=== PATIENT | male | born 1945 | race Caucasian/White ===

== ENCOUNTER 2019-09-08 23:15 | Emergency (ER) | payer OTHER ==
[~2019-09-08] VITALS: Ht 167.6 cm; Wt 73.5 kg
[2019-09-09 00:03] LABS: BASOPHILS ABSOLUTE AUTO 0.17 K/mm3 (0.00-0.23); BASOPHILS PERCENT AUTO 1 % (0-2); EOSINOPHILS ABSOLUTE AUTO 2.05 K/mm3 (0.00-0.68); EOSINOPHILS PERCENT AUTO 15 % (0-6); Hematocrit 43.9 % (37.0-53.0); Hemoglobin 14.3 g/dL (13.5-17.5); IMMATURE GRAN ABSOLUTE AUTO 0.04 K/mm3 (0.00-0.10); IMMATURE GRAN PERCENT AUTO 0 % (0-1); LYMPHOCYTES ABSOLUTE AUTO 3.76 K/mm3 (0.84-5.20); LYMPHOCYTES PERCENT AUTO 28 % (21-46); MONOCYTES ABSOLUTE AUTO 0.68 K/mm3 (0.16-1.47); MONOCYTES PERCENT AUTO 5 % (4-13); Mean Corpuscular HGB 30.8 pg (26.0-34.0); Mean Corpuscular HGB Conc 32.6 g/dL (31.5-36.5); Mean Corpuscular Volume 94 fL (80-100); Mean Platelet Volume 9.9 fL (9.1-12.4); NEUTROPHILS PERCENT AUTO 51 % (41-73); Platelet Count 313 K/mm3 (150-400); RDW Coefficient Variation 13.5 % (11.7-14.2); RDW Standard Deviation 47.3 fL (35.1-46.3); Red Blood Cell Count 4.65 M/mm3 (4.30-5.90)
[2019-09-09 00:26] LABS: Alanine Aminotransfer (ALT/SGP 37 U/L (12-78); Albumin, Blood 4.1 g/dL (3.4-5.0); Albumin/Globulin Ratio 1.2 (0.8-1.8); Alk Phos 77 U/L (50-136); Anion Gap 6 mmol/L (6-16); Aspartate Aminotrans (AST/SGOT 19 U/L (12-37); Bilirubin, Total 0.2 mg/dL (0.1-1.0); Blood Urea Nitrogen 13 mg/dL (8-24); Bun/Creatinine Ratio 16.2 (12.0-20.0); CO2, Blood 27 mmol/L (21-32); Calcium, Blood 9.3 mg/dL (8.5-10.1); Chloride, Blood 107 mmol/L (98-108); Globulin, Blood 3.5 g/dL (2.2-4.0); Glomerular Filtration Rate >60 (60-); Glucose, Blood 123 mg/dL (70-99); Potassium, Blood 4.1 mmol/L (3.5-5.5); Sodium, Blood 140 mmol/L (136-145); Total Protein, Blood 7.6 g/dL (6.4-8.2); Troponin I <0.015 ng/mL (0.000-0.040)
[2019-09-09] MEDS ORDERED: PRED20 PO (02:02)
== END 2019-09-09 02:10 | disposition home or self-care (01) ==
LOC: ER 23:15
PROVIDERS: Emergency Medicine
DX: J45.901 Unspecified asthma with (acute) exacerbation (principal); J44.9 Chronic obstructive pulmonary disease, unspecified; E11.9 Type 2 diabetes mellitus without complications; Z87.891 Personal history of nicotine dependence
CPT/HCPCS: 36415; 71046; 80053; 84484; 85025; 93005; 93010; 94640; 94644; 96365; 96375; 99285-25; J2930; J3475

== ENCOUNTER 2019-09-25 22:37 | Emergency (ER) | payer OTHER ==
[~2019-09-25] VITALS: Ht 167.6 cm; Wt 73.9 kg
[~2019-09-25 22:37] MED LIST: PRED20 PO
[2019-09-26 01:17] LABS: BASOPHILS ABSOLUTE AUTO 0.14 K/mm3 (0.00-0.23); BASOPHILS PERCENT AUTO 1 % (0-2); EOSINOPHILS ABSOLUTE AUTO 1.42 K/mm3 (0.00-0.68); EOSINOPHILS PERCENT AUTO 13 % (0-6); Hematocrit 42.4 % (37.0-53.0); Hemoglobin 13.7 g/dL (13.5-17.5); IMMATURE GRAN ABSOLUTE AUTO 0.07 K/mm3 (0.00-0.10); IMMATURE GRAN PERCENT AUTO 1 % (0-1); LYMPHOCYTES ABSOLUTE AUTO 4.17 K/mm3 (0.84-5.20); LYMPHOCYTES PERCENT AUTO 39 % (21-46); MONOCYTES ABSOLUTE AUTO 0.72 K/mm3 (0.16-1.47); MONOCYTES PERCENT AUTO 7 % (4-13); Mean Corpuscular HGB 30.8 pg (26.0-34.0); Mean Corpuscular HGB Conc 32.3 g/dL (31.5-36.5); Mean Corpuscular Volume 95 fL (80-100); Mean Platelet Volume 10.6 fL (9.1-12.4); NEUTROPHILS ABSOLUTE AUTO 4.25 K/mm3 (1.96-9.15); NEUTROPHILS PERCENT AUTO 40 % (41-73); Platelet Count 338 K/mm3 (150-400); RDW Coefficient Variation 13.8 % (11.7-14.2); Red Blood Cell Count 4.45 M/mm3 (4.30-5.90); White Blood Cell Count 10.77 K/mm3 (4.00-11.30)
[2019-09-26 01:32] LABS: Alanine Aminotransfer (ALT/SGP 41 U/L (12-78); Albumin, Blood 3.9 g/dL (3.4-5.0); Albumin/Globulin Ratio 1.3 (0.8-1.8); Alk Phos 77 U/L (50-136); Anion Gap 8 mmol/L (6-16); Aspartate Aminotrans (AST/SGOT 21 U/L (12-37); Bilirubin, Total 0.3 mg/dL (0.1-1.0); Blood Urea Nitrogen 12 mg/dL (8-24); Bun/Creatinine Ratio 14.5 (12.0-20.0); CO2, Blood 26 mmol/L (21-32); Calcium, Blood 8.8 mg/dL (8.5-10.1); Chloride, Blood 108 mmol/L (98-108); Creatinine, Blood 0.83 mg/dL (0.60-1.20); Globulin, Blood 2.9 g/dL (2.2-4.0); Glomerular Filtration Rate >60 (60-); Glucose, Blood 156 mg/dL (70-99); Potassium, Blood 4.3 mmol/L (3.5-5.5); Sodium, Blood 142 mmol/L (136-145); Total Protein, Blood 6.8 g/dL (6.4-8.2); Troponin I <0.015 ng/mL (0.000-0.040)
[2019-09-26] MEDS ORDERED: ALBU3IS INH (01:48)
[2019-09-26] MEDS ORDERED: BUDE6HFA INH (01:49)
[2019-09-26] MEDS ORDERED: ATOR20 PO (01:49)
[2019-09-26] MEDS ORDERED: GABA300 PO (01:50)
[2019-09-26] MEDS ORDERED: FLUO.01TC TOP (01:50)
[2019-09-26] MEDS ORDERED: METF500 PO (01:51)
[2019-09-26] MEDS ORDERED: Prinivil10 MG PO (01:51)
[2019-09-26] MEDS ORDERED: GLIP10 PO (01:51)
[2019-09-26] MEDS ORDERED: OMEPRAZOLE20 MG PO (01:52)
== END 2019-09-26 03:18 | disposition home or self-care (01) ==
LOC: ER 22:37
PROVIDERS: Emergency Medicine
DX: J44.1 Chronic obstructive pulmonary disease with (acute) exacerbation (principal); E11.9 Type 2 diabetes mellitus without complications; Z87.891 Personal history of nicotine dependence; Z79.899 Other long term (current) drug therapy; Z79.51 Long term (current) use of inhaled steroids; Z79.84 Long term (current) use of oral hypoglycemic drugs
CPT/HCPCS: 36415; 71045; 80053; 83880; 84484; 85025; 93005; 93010; 94640; 96374; 99284-25; J2930

== ENCOUNTER 2019-11-11 23:43 | Inpatient (IN) | payer OTHER ==
[~2019-11-11] VITALS: Ht 167.6 cm; Wt 74.5 kg
[~2019-11-11 23:43] MED LIST changes: +ALBU3IS INH; +ATOR20 PO; +BUDE6HFA INH; +FLUO.01TC TOP; +GABA300 PO; +GLIP10 PO; +METF500 PO; +OMEPRAZOLE20 MG PO; +Prinivil10 MG PO
[2019-11-12 00:51] LABS: BASOPHILS ABSOLUTE AUTO 0.19 K/mm3 (0.00-0.23); BASOPHILS PERCENT AUTO 1 % (0-2); EOSINOPHILS ABSOLUTE AUTO 2.95 K/mm3 (0.00-0.68); EOSINOPHILS PERCENT AUTO 22 % (0-6); Hematocrit 43.3 % (37.0-53.0); Hemoglobin 13.9 g/dL (13.5-17.5); IMMATURE GRAN PERCENT AUTO 1 % (0-1); LYMPHOCYTES ABSOLUTE AUTO 4.72 K/mm3 (0.84-5.20); LYMPHOCYTES PERCENT AUTO 35 % (21-46); MONOCYTES ABSOLUTE AUTO 0.87 K/mm3 (0.16-1.47); MONOCYTES PERCENT AUTO 6 % (4-13); Mean Corpuscular HGB 30.8 pg (26.0-34.0); Mean Corpuscular HGB Conc 32.1 g/dL (31.5-36.5); Mean Corpuscular Volume 96 fL (80-100); NEUTROPHILS ABSOLUTE AUTO 4.68 K/mm3 (1.96-9.15); NEUTROPHILS PERCENT AUTO 35 % (41-73); Platelet Count 308 K/mm3 (150-400); RDW Coefficient Variation 13.8 % (11.7-14.2); RDW Standard Deviation 49.1 fL (35.1-46.3); Red Blood Cell Count 4.51 M/mm3 (4.30-5.90); White Blood Cell Count 13.51 K/mm3 (4.00-11.30)
[2019-11-12 01:10] LABS: Alanine Aminotransfer (ALT/SGP 37 U/L (12-78); Albumin/Globulin Ratio 1.3 (0.8-1.8); Alk Phos 78 U/L (50-136); Anion Gap 5 mmol/L (6-16); Aspartate Aminotrans (AST/SGOT 22 U/L (12-37); Bilirubin, Total 0.2 mg/dL (0.1-1.0); Blood Urea Nitrogen 12 mg/dL (8-24); Bun/Creatinine Ratio 12.2 (12.0-20.0); CO2, Blood 29 mmol/L (21-32); Calcium, Blood 8.7 mg/dL (8.5-10.1); Chloride, Blood 110 mmol/L (98-108); Creatinine, Blood 0.98 mg/dL (0.60-1.20); Glomerular Filtration Rate >60 (60-); Glucose, Blood 133 mg/dL (70-99); Potassium, Blood 4.1 mmol/L (3.5-5.5); Sodium, Blood 144 mmol/L (136-145); Troponin I <0.015 ng/mL (0.000-0.040)
[2019-11-12 02:07] LABS: PCO2 Arterial 54.7 mmHg (35-45); PO2 Arterial 104 mmHg (80-100); pH Blood Arterial 7.29 (7.35-7.45)
[2019-11-12] MEDS ORDERED: CENTRUM SILVER1 EAC2 PO (02:13)
[2019-11-12] MEDS ORDERED: ASPI81CH PO (02:13)
[2019-11-12] MEDS ORDERED: B-121000 MCG PO (02:14)
[2019-11-12] MEDS ORDERED: ASCO500 PO (02:15)
[2019-11-12] MEDS ORDERED: Saw Palmetto450 MG PO (02:15)
[2019-11-12] MEDS ORDERED: Garlic1000 MG PO (02:16)
[2019-11-12 05:20] LABS: Hemoglobin 13.4 g/dL (13.5-17.5); Mean Corpuscular HGB 30.8 pg (26.0-34.0); Mean Corpuscular HGB Conc 31.9 g/dL (31.5-36.5); Mean Corpuscular Volume 97 fL (80-100); Mean Platelet Volume 10.1 fL (9.1-12.4); Platelet Count 288 K/mm3 (150-400); RDW Coefficient Variation 13.8 % (11.7-14.2); RDW Standard Deviation 49.5 fL (35.1-46.3); Red Blood Cell Count 4.35 M/mm3 (4.30-5.90); White Blood Cell Count 14.01 K/mm3 (4.00-11.30)
[2019-11-12 05:44] LABS: Alanine Aminotransfer (ALT/SGP 35 U/L (12-78); Albumin, Blood 3.9 g/dL (3.4-5.0); Albumin/Globulin Ratio 1.2 (0.8-1.8); Alk Phos 76 U/L (50-136); Anion Gap 6 mmol/L (6-16); Aspartate Aminotrans (AST/SGOT 20 U/L (12-37); Bilirubin, Total 0.2 mg/dL (0.1-1.0); Blood Urea Nitrogen 16 mg/dL (8-24); Bun/Creatinine Ratio 19.1 (12.0-20.0); CO2, Blood 27 mmol/L (21-32); Calcium, Blood 8.8 mg/dL (8.5-10.1); Chloride, Blood 108 mmol/L (98-108); Creatinine, Blood 0.84 mg/dL (0.60-1.20); Globulin, Blood 3.2 g/dL (2.2-4.0); Glomerular Filtration Rate >60 (60-); Glucose, Blood 232 mg/dL (70-99); Sodium, Blood 141 mmol/L (136-145); Total Protein, Blood 7.1 g/dL (6.4-8.2)
--- NOTE | 2019-11-12 06:11 | NUR ---
END OF SHIFT SUMMARY PT TO UNIT FROM ED. ON RA, WHEEZ BUT SPO2 >92%. LITTLE WORKL OF BRETING NOTED. PT AMBULATES INDEPENDENTLY AND MAINTAINS SATS. PT STATES BREAATHING FEELS MUCH BETTER. BIPAP AT BEDSIDE FOR RESCUE. RESP PCR COLLECTED. VSS. ADMISION COMPLETED. MEDS GIVEN PER EMAR. PT IS NOT DYSPNEIC. RHYTHM IN SINUS. BP STABLE. PT IS BARELY EVEN COUGHING AT THIS TIME. WILL CONTINUE TO MONITOR UNTIL SHIFT CHQANGE.
--- NOTE | 2019-11-12 08:30 | NUR ---
ASSUMPTION OF CARE RECEIVED PT AAOX4 RESTING COMFORTABLY IN BED. NO DISTRESS NOTED. VSS. PT REMAINS ON RA, PULSE OX 95%, RESPIRATIONS EVEN & UNLABORED. INSPIRATORY & EXPIRATORY WHEEZES NOTED B/L; PLAN TO CONTINUE W/ IV STEROIDS & BREATHING TX. PT DENIES ANY C/O CHEST PAIN/PRESSURE OR SOB. PT C/O MILD HEADACHE 5/10; PRN TYLENOL ADMINISTERED. PT IS INDEPENDENT IN ROOM. WILL CONTINUE TO MONITOR.
[2019-11-12 09:36] LABS: Adenovirus Not Detected (NOT DETECT); Bordetella pertussis Not Detected (NOT DETECT); Chlamydophila pneumoniae Not Detected (NOT DETECT); Coronavirus 229E Not Detected (NOT DETECT); Coronavirus HKU1 Not Detected (NOT DETECT); Coronavirus NL63 Not Detected (NOT DETECT); Coronavirus OC43 Not Detected (NOT DETECT); Human Metapneumovirus Not Detected (NOT DETECT); Human Rhinovirus/Enterovirus Not Detected (NOT DETECT); Influenza A/2009-H1 Not Detected (NOT DETECT); Influenza A/H1 Not Detected (NOT DETECT); Influenza A/H3 Not Detected (NOT DETECT); Influenza B Not Detected (NOT DETECT); Mycoplasma pneumoniae Not Detected (NOT DETECT); Parainfluenza Virus 1 Not Detected (NOT DETECT); Parainfluenza Virus 2 Not Detected (NOT DETECT); Parainfluenza Virus 3 Not Detected (NOT DETECT); Parainfluenza Virus 4 Not Detected (NOT DETECT); Respiratory Syncytial Virus Not Detected (NOT DETECT)
--- NOTE | 2019-11-12 11:58 | NUR ---
NO ACUTE CHANGES THROUGHOUT SHIFT. VSS. PT REMAINS ON RA. REPORT GIVEN TO KEE LOYA. PT TRANSPORTED TO MEDICAL FLOOR VIA WHEELCHAIR IN STABLE CONDITION. ALL BELONGINGS SENT W/ PT.
--- NOTE | 2019-11-12 13:03 | NUR ---
PT ARRIVED TO THE MEDICAL FLOOR FROM THE PCU, A/OX3, PLEASANT AND COOPERATIVE, THE PT APPEARS TO BE BREATHING EASILY ON RA AT THIS TIME, REPORT WAS TAKEN FROM KASSIE [employer]IC[employer], I AGREE WITH HER AM ASSESSMENT, PT WAS ORIENTED TO THE ROOM LAYOUT AND CALL SYSTEM CALL LIGHT IN REACH
--- NOTE | 2019-11-12 16:20 | NUR ---
PT IS A/OX3, PLEASANT AND COOPERATIVE, THE PY IS UP IND IN HIS ROOM, THE PT APPEARS TO BE BREATHING EASILY AT THIS TIME ON RA, THE PT DENIES ANY PAIN AT THIS TIME, THE PT WAS TRANSFERD TO THE MEDICAL FLOOR FROM THE PCU TODAY, CALL LIGHT IN REACH, WILL CONTINUE TO MONITOR AND ASSESS FOR CHANGES
[2019-11-12] MEDS ORDERED: TUMS500 MG PO (22:10)
--- NOTE | 2019-11-12 23:42 | NUR ---
Catrina [employer] called with PTs request for Tums PRN and his home schedule for proton pump inhibitor. DTR brought in own CPAP RT notified.
--- NOTE | 2019-11-13 05:23 | NUR ---
PT had DTR bring own CPAP RT set up. PT used through night without desats on room air. Welaka [place]. Up indep in roon. No sputum , occasional dry hacking cough. On IV steroids Q 12 hours.
[2019-11-13] MEDS ORDERED: AZIT500 PO (13:31)
[2019-11-13] MEDS ORDERED: GUAI600T33 PO (13:31)
[2019-11-13] MEDS ORDERED: ACET325 PO (13:31)
[2019-11-13] MEDS ORDERED: Prednisone10 MG PO (13:32)
[2019-11-13] MEDS ORDERED: Florastor250 MG PO (13:32)
--- NOTE | 2019-11-13 13:50 | NUR ---
pt discharged THE PT VERBALIZED UNDERSTANDING OF THE DC INSTRUCTIONS, PT WAS ENCOURAGED TO CALL HIS PRODUCT DEVELOPMENT SPECIALIST ROHAN TO MAKE A FOLLOW UO APPOINTMENT, PTS PRESCRIPTIONS WERE FAXED TO [facility] REQUESTED, PT APPEARED TO BE BREATHING EASILY AT THE TIME OF DC ON RA, THE PT WAS A/OX3
== END 2019-11-13 13:55 | disposition home or self-care (01) | DRG 189 ==
LOC: ER 23:43 → PCU 11-12 04:21 → MEDS 11-12 11:52
PROVIDERS: Emergency Medicine; ADMIT Internal Medicine
PROC: 5A09357 Assistance with Respiratory Ventilation, Less than 24 Consecutive Hours, Continuous Positive Airway Pressure (ICD-10-PCS; principal; 2019-11-12)
DX: J96.21 Acute and chronic respiratory failure with hypoxia (principal); J44.1 Chronic obstructive pulmonary disease with (acute) exacerbation; J96.22 Acute and chronic respiratory failure with hypercapnia; I10 Essential (primary) hypertension; E11.40 Type 2 diabetes mellitus with diabetic neuropathy, unspecified; K80.20 Calculus of gallbladder without cholecystitis without obstruction; K44.9 Diaphragmatic hernia without obstruction or gangrene; Z87.891 Personal history of nicotine dependence; Z79.82 Long term (current) use of aspirin; Z79.84 Long term (current) use of oral hypoglycemic drugs
CPT/HCPCS: 0099U; 36415; 36600; 71046; 71250; 80053; 82803; 82947; 84484; 85025; 85027; 93005; 93010; 94640; 94644; 94660; 94760; 94761; 94762; 96374; 99285-25; A9270; A9270-GY; J0456; J1650; J2920; J2930; J7050

== ENCOUNTER 2021-04-24 21:26 | Emergency (ER) | payer OTHER ==
[~2021-04-24] VITALS: Ht 167.6 cm; Wt 69.4 kg
[~2021-04-24 21:26] MED LIST changes: +ACET325 PO; +ASCO500 PO; +ASPI81CH PO; +AZIT500 PO; +B-121000 MCG PO; +CENTRUM SILVER1 EAC2 PO; +Florastor250 MG PO; +GUAI600T33 PO; +Garlic1000 MG PO; +Prednisone10 MG PO; +Saw Palmetto450 MG PO; +TUMS500 MG PO
[2021-04-24 22:25] LABS: BASOPHILS ABSOLUTE AUTO 0.09 K/mm3 (0.00-0.23); BASOPHILS PERCENT AUTO 1 % (0-2); EOSINOPHILS ABSOLUTE AUTO 0.45 K/mm3 (0.00-0.68); EOSINOPHILS PERCENT AUTO 6 % (0-6); Hematocrit 42.2 % (37.0-53.0); Hemoglobin 13.9 g/dL (13.5-17.5); IMMATURE GRAN ABSOLUTE AUTO 0.08 K/mm3 (0.00-0.10); IMMATURE GRAN PERCENT AUTO 1 % (0-1); LYMPHOCYTES ABSOLUTE AUTO 3.23 K/mm3 (0.84-5.20); LYMPHOCYTES PERCENT AUTO 42 % (21-46); MONOCYTES PERCENT AUTO 7 % (4-13); Mean Corpuscular HGB Conc 32.9 g/dL (31.5-36.5); Mean Corpuscular Volume 94 fL (80-100); NEUTROPHILS ABSOLUTE AUTO 3.37 K/mm3 (1.96-9.15); NEUTROPHILS PERCENT AUTO 44 % (41-73); Platelet Count 313 K/mm3 (150-400); RDW Coefficient Variation 13.2 % (11.7-14.2); RDW Standard Deviation 46.1 fL (35.1-46.3); Red Blood Cell Count 4.48 M/mm3 (4.30-5.90); White Blood Cell Count 7.72 K/mm3 (4.00-11.30)
[2021-04-24 22:44] LABS: Alanine Aminotransfer (ALT/SGP 38 U/L (12-78); Albumin, Blood 3.8 g/dL (3.4-5.0); Albumin/Globulin Ratio 1.2 (0.8-1.8); Alk Phos 70 U/L (50-136); Anion Gap 6 mmol/L (6-16); Aspartate Aminotrans (AST/SGOT 17 U/L (12-37); Bilirubin, Total 0.2 mg/dL (0.1-1.0); Blood Urea Nitrogen 15 mg/dL (8-24); Bun/Creatinine Ratio 17.8 (12.0-20.0); CO2, Blood 28 mmol/L (21-32); Calcium, Blood 9.4 mg/dL (8.5-10.1); Chloride, Blood 105 mmol/L (98-108); Creatinine, Blood 0.84 mg/dL (0.60-1.20); Globulin, Blood 3.2 g/dL (2.2-4.0); Glomerular Filtration Rate >60 (60-); Glucose, Blood 179 mg/dL (70-99); Potassium, Blood 4.3 mmol/L (3.5-5.5); Sodium, Blood 139 mmol/L (136-145); Troponin I <0.015 ng/mL (0.000-0.040)
== END 2021-04-25 01:40 | disposition home or self-care (01) ==
LOC: ER 21:26
PROVIDERS: Physician Assistant
DX: R07.9 Chest pain, unspecified (principal); R42 Dizziness and giddiness; J44.9 Chronic obstructive pulmonary disease, unspecified; E11.9 Type 2 diabetes mellitus without complications; Z87.891 Personal history of nicotine dependence
CPT/HCPCS: 36415; 71045; 80053; 83690; 83880; 84484; 85025; 93005; 93010; 99284-25